=== PATIENT | female | born 1950 | race African-American/Black ===

== ENCOUNTER 2024-01-03 07:16 | Emergency (ER) | payer OTHER ==
[2024-01-03 07:52] LABS: PT Prothrombin Time 12.3 SECONDS (9.4-12.5); PTT, Activated Partial Thromb 31.5 SECONDS (24.3-36.9); Protime INR 1.1
[2024-01-03 08:04] LABS: Albumin 3.5 g/dL (3.4-5.0); Albumin/Globulin Ratio 0.8 (1.1-1.8); Bilirubin Direct 0.2 mg/dL (0-0.2); Bilirubin Indirect, Calculated 0.5 mg/dL (0.2-0.8); Bilirubin Total 0.7 mg/dL (0.2-1.0); Globulin 4.6 g/dL (2.3-3.5); Magnesium 1.9 mg/dL (1.6-2.4); Protein, Total 8.1 g/dL (6.4-8.2); Troponin High Sensitivity 18.2 pg/mL (<58.9)
[2024-01-03 08:15] LABS: Absolute Eosinophils 0.2 K/uL (0-0.5); Absolute Lymphocytes (CBC) 1.2 K/uL (0.7-4.9); Absolute Monocytes 0.4 K/uL (0.1-1.3); Absolute Neutrophil 1.9 K/uL (1.8-8.0); Basophils % 0.7 % (0-1.3); Eosinophils % 4.6 % (0-4.4); Hematocrit 50.2 % (36.0-45.0); Hemoglobin 15.8 g/dL (12.0-15.0); Lymphocytes % 32.3 % (15.3-44.8); MCH 24.7 pg (27.0-35.0); MCHC 31.5 g/dL (32.0-36.0); MCV 78.2 fL (80-100); MPV 8.7 fL (7.6-11.3); Monocytes % 11.6 % (3.3-12.3); Neutrophils % 50.8 % (41.7-73.7); Nucleated Red Blood Cells % 0.2 % (0-0); Platelets 160 thou/uL (152-406); RBC Red Blood Cell Count 6.42 M/uL (3.86-4.86); Red Cell Distribution Width 14.5 % (12.1-15.2)
--- NOTE | 2024-01-03 08:25 | RAD REPORT ---
EXAM DESCRIPTION: CT - Ct Stroke Brain Wo Cont - 01/03/2024 7:31 am CLINICAL HISTORY: STROKE ALERT COMPARISON: Abdomen Pelvis W Contrast dated 10/19/2023; Abdomen Pelvis W Contrast dated 09/10/2023; Abdomen Pelvis W Contrast dated 4Brain Wo Cont dated 10/30/2020 TECHNIQUE: Noncontrast head CT images ad were obtained without IV contrast. Multiplanar reformats we re generated and reviewed. All CT scans are performed using dose optimization technique as appropriate and may include automated exposure control or mA/KV adjustment according to patient size. FINDINGS: No intracranial hemorrhage, mass, or edema. Midline structures are unremarkable. Normal ventricular caliber for age. Very small focus of hypoattenuation in the right occipital lobe, may represent a small infarct of ind eterminate age. Larson-white matter differentiation is otherwise preserved, without evidence of acute i nfarct. No abnormal extra-axial fluid collections. Mastoid air cells and visualized portions of the paranasal sinuses are clear. No acute bony findings. IMPRESSION: Very small right occipital focus of hypoattenuation commonly representing small infarct of indeterminate age. No evidence of an acute intracranial hemorrhage or mass effect. The findings were communicated to Dr. Cabrera on 01/03/2024 at 08:18 hours.
--- NOTE | 2024-01-03 08:36 | RAD REPORT ---
EXAM DESCRIPTION: Jay Single View01/03/2024 8:13 am CLINICAL HISTORY: stroke alert COMPARISON: No comparisons TECHNIQUE: Portable AP view of the chest. FINDINGS: The lungs are clear. No pneumothorax or effusion. The cardiomediastinal contours are unre markable. IMPRESSION: No acute cardiopulmonary process.
--- NOTE | 2024-01-03 09:14 | RAD REPORT ---
EXAM DESCRIPTION: CT - Head angio - 01/03/2024 8:41 am CLINICAL HISTORY: stroke alert COMPARISON: Ct Stroke Brain Wo Cont dated 01/03/2024; Neck Angio dated 01/03/2024 TECHNIQUE: Axial CT angiography images of the head was performed with multiplanar and maximum intens ity projection reconstructions. Images performed following intravenous administration of iodinated c ontrast. All CT scans are performed using dose optimization technique as appropriate and may include automated exposure control or mA/KV adjustment according to patient size. FINDINGS: Attenuated caliber of the proximal right posterior cerebral artery. Along the proximal P2 segment, there is abrupt occlusion of the vessel, with probable reconstitution along its mid segment, following a short segment of absent opacification. No other evidence of large vessel occlusion. No evidence of aneurysm or dissection flap is detected. No flow-limiting stenosis or vascular malfor mation identified. Antegrade flow is seen in the vertebral arteries. The vertebral arteries are codominant. The visualized dural venous sinuses are grossly patent. IMPRESSION: Short-segment occlusion of the proximal right P2 segment. The findings were communicated to Dr. Carrera on 01/03/2024 at 09:10 hours.
--- NOTE | 2024-01-03 09:28 | RAD REPORT ---
EXAM DESCRIPTION: CT - Neck Angio - 01/03/2024 8:40 am CLINICAL HISTORY: stroke alert COMPARISON: No comparisons TECHNIQUE: Axial CT angiography images of the neck was performed with multiplanar and maximum intens ity projection reconstructions. Images performed following intravenous administration of iodinated c ontrast. All CT scans are performed using dose optimization technique as appropriate and may include automated exposure control or mA/KV adjustment according to patient size. Quantification of carotid stenosis, if any, is performed according to NASCET criteria. FINDINGS: A left aortic arch is identified with normal three vessel configuration of the great vesse ls. No significant flow abnormality is seen of the common carotid bilaterally. No significant stenosis is identified involving the cervical segments of both internal carotid arteri es. Normal flow is seen within both vertebral arteries. Numerous bilateral levels hypoattenuating nodules. IMPRESSION: No significant flow abnormality of the neck vessels is identified. Numerous bilateral levels hypoattenuating nodules incidentally noted. CAROTID STENOSIS REFERENCE USING NASCET CRITERIA: % ICA stenosis = (1 - narrowest ICA diameter/diameter of distal cervical ICA) x 100. Mild - <50% stenosis. Moderate - 50-69% stenosis. Severe - 70-94% stenosis. Near occlusion - 95-99% stenosis. Occluded - 100% stenosis.
--- NOTE | 2024-01-03 09:30 | EDPHYS ---
Physician Documentation [facility] Name: Yesi Ramirez Age: 73 yrs Sex: Female : 1950 Arrival Date: 01/03/2024 Time: 07:16 Bed 8 Private MD: ED Physician Luann Carrera HPI: 01/02 07:41 This 73 yrs old Black Female presents to ER via Unassigned with complaints of Numbness sd2 Of Face - left side, S/S of Possible Stroke. 07:41 73 yo F presents with CC of stroke-like symptoms starting at 4pm yesterday. Reports sd2 initially feeling numbness to her left hand which then went up to her elbow and then her left lower leg around the calf area with tingling in her left foot followed by numbness to the top left side of her lip. Also reports noticing changes in her vision. Denies CP, SOB, n/v or other symptoms. No prior hx of bleeding issues. Not currently on blood thinners. Did not take her BP meds yet this AM. . Historical: - Allergies: 07:41 Sulfa (Sulfonamide Antibiotics); hb - PMHx: 07:41 Hypertension; DM2; hb - Immunization history:: Adult Immunizations up to date. - Infectious Disease History:: Denies. - Social history:: Smoking status: Patient denies any tobacco usage or history of. ROS: 07:41 Constitutional: Negative for fever, chills, and weight loss, Eyes: Negative for injury, sd2 pain, redness, and discharge, positive for vision change Neck: Negative for injury, pain, and swelling, Cardiovascular: Negative for chest pain, palpitations, and edema, Respiratory: Negative for shortness of breath, cough, wheezing. Abdomen/GI: Negative for abdominal pain, nausea, vomiting, diarrhea. MS/Extremity: Negative for injury and deformity, Skin: Negative for injury, rash, and discoloration, Neuro: Negative for headache,positive for numbness and tingling. Exam: 07:41 Constitutional: This is a well developed, well nourished patient who is awake, alert, sd2 and in no acute distress. Head/Face: Normocephalic, atraumatic. Eyes: EOMI, normal conjunctiva bilaterally ENT: Nares patent. Moist mucous membranes. Chest/axilla: Normal chest wall appearance and motion. Nontender with no deformity. Cardiovascular: Regular rate and rhythm with a normal S1 and S2. No gallops, murmurs, or rubs. 2+ distal pulses. Respiratory: Lungs have equal breath sounds bilaterally, clear to auscultation and percussion. No rales, rhonchi or wheezes noted. No increased work of breathing, no retractions or nasal flaring. Abdomen/GI: Soft, non-tender, with normal bowel sounds. No guarding or rebound. No evidence of tenderness throughout. Skin: Warm, dry with normal turgor. Normal color with no rashes, no lesions, and no evidence of cellulitis. MS/ Extremity: Pulses equal, no cyanosis. Neurovascular intact. Full, normal range of motion. Neuro: Awake and alert, GCS 15, oriented to person, place, time, and situation. Cranial nerves II-XII grossly intact. Noted difficulty with peripheral vision on both sides. Motor strength 5/5 in all extremities. Sensory grossly intact but noted difference in sensation that is difficult for patient to describe to L lower leg and L hand and forearm as well as small area above left upper lip. Cerebellar exam normal. Normal gait. Psych: Awake, alert, with orientation to person, place and time. Behavior, mood, and affect are within normal limits. 07:41 ECG was reviewed by the Attending Physician. NSR, rate 77, no STEMI criteria, TWIs sd2 noted in lateral leads 09:30 Radiologist reports: small occipital infarct, undetermined age sd2 Vital Signs: 07:19 BP 218 / 76; Pulse 87; Resp 16; Temp 98.3; Pulse Ox 98% on R/A; Weight 95.1 kg; Height hb 5 ft. 7 in. ; Pain 0/10; 08:04 BP 217 / 77; Pulse 75; Resp 17 S; Pulse Ox 99% on R/A; kc6 09:03 BP 197 / 61; Pulse 63; Resp 16 S; Pulse Ox 100% on R/A; kc6 09:40 BP 216 / 76; Pulse 86; Resp 19 S; Pulse Ox 100% on R/A; kc6 09:57 BP 231 / 75; Pulse 79; Resp 16 S; Pulse Ox 99% on R/A; kc6 10:17 BP 213 / 70; Pulse 80; Resp 15 S; Pulse Ox 100% on R/A; kc6 07:19 Body Mass Index 32.84 (95.10 kg, 170.18 cm) hb 07:19 Pain Scale: Adult hb NIH Stroke Scale Scores: 07:33 NIHSS Score: 2 kc6 MDM: 07:23 Patient medically screened. sd2 07:41 Differential diagnosis: CVA, TIA, metabolic disorder, drug effects, among others. sd2 TNKase (Tenecteplase) Screening: Contraindications: Patient reports onset of signs and symptoms of stroke greater than 6 hours ago: Yes. Data reviewed: vital signs, nurses notes, lab test result(s), EKG, radiologic studies. Care significantly affected by the following chronic conditions: Diabetes, Hypertension. 07:53 Management of patient was discussed with the following: Forging Machine Hand: Dr. Arellano, audrey2 Neurology, recommends CTA head and neck and if no LVO, can be admitted with ASA, plavix and statin. If LVO, recommends transfer for thrombolysis.. I considered the following discharge prescriptions or medication management in the emergency department Medications were administered in the Emergency Department. See JUL. 09:25 Management of patient was discussed with the following: Forging Machine Hand: Neuro-supervisor [employer] sd2 at [facility] who recommends flying the patient for CT perfusion scan. Pt to be transferred directly to their ER. Spoke with ER physician who also accepts the transfer. Pt stable for transfer at this time.. Discussion of test interpretation with radiology: I had a discussion with radiology regarding a test interpretation. CT shows small infarct in occipital area as well as short segment P2 occlusion. . Counseling: I had a detailed discussion with the patient and/or guardian regarding the historical points, exam findings, and any diagnostic results supporting the discharge/admit diagnosis, lab results, radiology results, the need to transfer to another facility, for higher level of care. 10:15 ED course: Transfer team at bedside with [facility]. BP 213/70. sd2 Continuing with permissive HTN up to 220/120. Advised if above this to lower by 15% per AHA recommendations. . 01/02 07:24 Order name: Basic Metabolic Panel; Complete Time: 08:32 sd2 01/02 07:24 Order name: CBC with Diff; Complete Time: 08:32 sd2 01/02 07:24 Order name: Hepatic Function; Complete Time: 08:32 sd2 01/02 07:24 Order name: High Sensitivity Troponin; Complete Time: 08:32 sd2 01/02 07:24 Order name: Magnesium; Complete Time: 08:32 sd2 01/02 07:24 Order name: Protime (+inr); Complete Time: 08:32 sd2 01/02 07:24 Order name: Ptt, Activated; Complete Time: 08:32 sd2 01/02 07:49 Order name: Glucose, Ancillary Testing; Complete Time: 08:32 EDMS 01/02 07:24 Order name: CT Neck Angio; Complete Time: 09:30 sd2 01/02 07:24 Order name: CT Stroke Brain w/o Contrast; Complete Time: 08:32 sd2 01/02 07:24 Order name: Stroke CXR 1 View; Complete Time: 09:12 sd2 01/02 07:31 Order name: Head angio; Complete Time: 09:22 EDMS 01/02 07:24 Order name: Accucheck; Complete Time: 07:49 sd2 01/02 07:24 Order name: Cardiac monitoring; Complete Time: 07:49 sd2 01/02 07:24 Order name: EKG - Nurse/Tech; Complete Time: 07:49 sd2 01/02 07:24 Order name: IV Saline Lock; Complete Time: 07:49 sd2 01/02 07:24 Order name: Labs collected and sent; Complete Time: 07:49 sd2 01/02 07:24 Order name: NPO; Complete Time: 07:49 sd2 01/02 07:24 Order name: O2 Per Protocol; Complete Time: 07:49 sd2 01/02 07:24 Order name: O2 Sat Monitoring; Complete Time: 07:49 sd2 01/02 07:24 Order name: Stroke Swallow Screen; Complete Time: 07:49 sd2 Administered Medications: No medications were administered Point of Care Testing: Blood Glucose: 07:38 Blood Glucose: 109 mg/dL; kc6 Ranges: Critical Glucose Levels:Adult <50 mg/dl or >400 mg/dl <40 mg/dl or >180 mg/dl Disposition Summary: 01/03/24 09:29 Transfer Ordered Notes: Transfer Location: [facility] sd2 Reason: Higher level of care sd2 Condition: Stable sd2 Problem: new sd2 Symptoms: are unchanged sd2 Accepting Physician: Dr. Ramirez and Dr. Almanzar(01/03/24 10:20) kc6 Diagnosis - Cerebrovascular accident sd2 - Occipital infarct sd2 - Short segment P2 occlusion of the posterior cerebral artery sd2 Forms: - Medication Reconciliation Form sd2 - SBAR form sd2 Critical care time excluding procedures: 09:25 Critical care time: Bedside Care: 40 minutes, Consultation: 10 minutes, Family sd2 Intervention: 5 minutes. Total time: 55 minutes NIH Stroke Scale - NIH Stroke Score Date: 01/03/2024 Time: 07: Total Score = 2 10. Dysarthria (speech clarity - read or repeat words) - 0(Normal) 11. Extinction and Inattention (visual/tactile/auditory/spatial/personal) - 0(No abnormality) 1a. Level of Consciousness (LOC) - 0(Alert) 1b. Level of Consciousness (LOC) (Month \T\ Age) - 0(Both) 1c. LOC Commands (Open \T\ Closes Eyes/Environmental Engineering Professor) - 0(Both) 2. Best Gaze (Lateral Gaze Paresis) - 0(Normal) 3. Visual Field Loss - 1(Partial hemianopia) 4. Facial Palsy - 0(Normal) 5a. Left Arm: Motor (10-second hold) - 0(No drift) 5b. Right Arm: Motor (10-second hold) - 0(No drift) 6a. Left Leg: Motor (5-second hold - always test supine) - 0(No drift) 6b. Right Leg: Motor (5-second hold - always test supine) - 0(No drift) 7. Limb Ataxia (finger/nose \T\ heel/magana - test with eyes open) - 0(Absent) 8. Sensory Loss (pinprick arms/legs/face) - 1(Mild to moderate loss) 9. Best Language: Aphasia (description/naming/reading) - 0(No aphasia) Initials: kc6 Signatures: Dispatcher [employer] EDArlene Jenkins RN RN hb Dunlop, Stephanie, MD MD sd2 Rut James RN RN kc6 Corrections: (The following items were deleted from the chart) 07:24 07:24 BASIC METABOLIC PANEL+C.LAB.BRZ ordered. EDMS EDMS 07:24 07:24 CBC+H.LAB.BRZ ordered. EDMS EDMS 07:24 07:24 HEPATIC FUNCTION+C.LAB.BRZ ordered. EDMS EDMS 07:24 07:24 Troponin High Sensitivity+C.LAB.BRZ ordered. EDMS EDMS 07:24 07:24 MAGNESIUM+C.LAB.BRZ ordered. EDMS EDMS 07:24 07:24 PROTIME (+INR)+COAG.LAB.BRZ ordered. EDMS EDMS 07:24 07:24 PTT, ACTIVATED+COAG.LAB.BRZ ordered. EDMS EDMS 07:25 07:25 Neck Angio+CT.RAD.BRZ ordered. EDMS EDMS 07:25 07:25 CT-STROKE BRAIN W/O CONTRAST+CT.RAD.BRZ ordered. EDMS EDMS 07:25 07:25 Chest Single View+RAD.RAD.BRZ ordered. EDMS EDMS 10:20 09:[address] Almanzar sd2 kc6
--- NOTE | 2024-01-03 09:30 | ER ---
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 Coronavirus screen: At this time, the client does not indicate any symptoms associated with coronavirus-19. Ebola Screen: No symptoms or risks identified at this time. 07:19 Method Of Arrival: Ambulatory hb 07:20 An acute neurological deficit is present. The charge nurse has been notified. hb Pre-hospital glucose is not applicable to this patient. Initial Sepsis Screen: Does the patient meet any 2 criteria? No. Patient's initial sepsis screen is negative. Does the patient have a suspected source of infection? No. Patient's initial sepsis screen is negative. Risk Assessment: Do you want to hurt yourself or someone else? Patient reports no desire to harm self or others. Onset of symptoms was January 02, 2024 at 21:00. 07:20 Acuity: RY 2 hb Triage Assessment: 08:03 The onset of the patients symptoms was January 02, 2024 at 21:00. kc6 Stroke Activation: Symptom onset > 6 hours Physician: ED Attending; Name: ; Notified At: ; Arrived At: Physician: Mid-Level Provider; Name: ; Notified At: ; Arrived At: Physician: [not used]; Name: ; Notified At: ; Arrived At: Physician: [not used]; Name: ; Notified At: ; Arrived At: Physician: [not used]; Name: ; Notified At: ; Arrived At: Historical: - Allergies: 07:41 Sulfa (Sulfonamide Antibiotics); hb - PMHx: 07:41 Hypertension; DM2; hb - Immunization history:: Adult Immunizations up to date. - Infectious Disease History:: Denies. - Social history:: Smoking status: Patient denies any tobacco usage or history of. Screenin:33 VAN Screening: Arm Drift: Patient shows no arm weakness. Patient is VAN negative. kc6 Visual Disturbance: Field Cut: Abnormal visual castro noted. Provider notified of VAN + scoring. pt expresses that she is not able to see peripherally with her left eye but can see centrally Aphasia: No aphasia noted. Neglect: No neglect noted. 07:42 [facility] ED Fall Risk Assessment (Adult) History of falling in the last 3 months, kc6 including since admission No falls in past 3 months (0 pts) Confusion or Disorientation No (0 pts) Intoxicated or Sedated No (0 pts) Impaired Gait No (0 pts) Mobility Assist Device Used Yes (1 pt) Altered Elimination No (0 pt) Score/Fall Risk Level 0 - 2 = Low Risk. Abuse screen: Denies threats or abuse. Denies injuries from another. Nutritional screening: No deficits noted. Tuberculosis screening: No symptoms or risk factors identified. 07:44 [place] Swallow Protocol Brief Cognitive Screen What is your name? Normal, Where are you kc6 right now? Normal, What year is it? Normal. Oral Mechanism Examination Facial Symmetry: Normal, Motion: Normal, Lip Closure: Normal, Oral Mechanism Result: Normal. 3 oz Water Swallow Challenge: Pt able to drink all water without stopping, coughing, choking or throat clearing: Yes Result: PASS MD Notified: Luann Carrera MD. Assessment: 07:20 Reassessment: CODE STROKE CALLED, PT TO CT VIA WHEELCHAIR WITH ARLENE QUINTANILLA. kc6 07:31 Reassessment: PT RETURNED FROM CT. DR CARRERA AND RUT RN AT BEDSIDE. hb 07:32 Reassessment: LAB AT BEDSIDE FOR BLOOD DRAW. hb 07:33 General: Appears in no apparent distress. comfortable, well groomed, well developed, kc6 Behavior is calm, cooperative, appropriate for age. Pain: Denies pain. Neuro: Level of Consciousness is awake, alert, obeys commands, Oriented to person, place, time, situation, Appropriate for age Therapeutic Recreation Specialist are equal bilaterally Moves all extremities. Full function Gait is steady, Speech is normal, Facial symmetry appears normal, Pupils are PERRLA, Numbness in left leg and mouth Babinski is positive Reports blurred vision in left eye Denies weakness difficulty swallowing, headache. Cardiovascular: Denies chest pain, shortness of breath, Heart tones S1 S2 present Capillary refill < 3 seconds Rhythm is sinus rhythm. Respiratory: Airway is patent Trachea midline Respiratory effort is even, unlabored, Respiratory pattern is regular, symmetrical. GI: No signs and/or symptoms were reported involving the gastrointestinal system. : No signs and/or symptoms were reported regarding the genitourinary system. EENT: No signs and/or symptoms were reported regarding the EENT system. Derm: No signs and/or symptoms reported regarding the dermatologic system. Skin is intact, is healthy with good turgor, Skin is pink, warm \T\ dry. Musculoskeletal: No signs and/or symptoms reported regarding the musculoskeletal system. Circulation, motion, and sensation intact. Capillary refill < 3 seconds, Range of motion: intact in all extremities. 07:34 Reassessment: BLOOD DRAWN AND SENT TO OUTSIDE LAB. hb 09:03 Reassessment: Patient appears in no apparent distress at this time. No changes from kc6 previously documented assessment. Patient and/or family updated on plan of care and expected duration. Pain level reassessed. Patient is alert, oriented x 3, equal unlabored respirations, skin warm/dry/pink. 09:40 Reassessment: nurse to nurse given to [facility]. they request something for pts BP kc6 at this time. Dr. Carrera made aware. 09:42 Reassessment: Patient appears in no apparent distress at this time. No changes from kc6 previously documented assessment. Patient and/or family updated on plan of care and expected duration. Pain level reassessed. Patient is alert, oriented x 3, equal unlabored respirations, skin warm/dry/pink. Vital Signs: 07:19 BP 218 / 76; Pulse 87; Resp 16; Temp 98.3; Pulse Ox 98% on R/A; Weight 95.1 kg; Height hb 5 ft. 7 in. ; Pain 0/10; 08:04 BP 217 / 77; Pulse 75; Resp 17 S; Pulse Ox 99% on R/A; kc6 09:03 BP 197 / 61; Pulse 63; Resp 16 S; Pulse Ox 100% on R/A; kc6 09:40 BP 216 / 76; Pulse 86; Resp 19 S; Pulse Ox 100% on R/A; kc6 09:57 BP 231 / 75; Pulse 79; Resp 16 S; Pulse Ox 99% on R/A; kc6 10:17 BP 213 / 70; Pulse 80; Resp 15 S; Pulse Ox 100% on R/A; kc6 07:19 Body Mass Index 32.84 (95.10 kg, 170.18 cm) hb 07:19 Pain Scale: Adult hb NIH Stroke Scale Scores: 07:33 NIHSS Score: 2 kc6 ED Course: 07:19 Patient arrived in ED. ra3 07:23 Luann Carrera MD is Attending Physician. sd2 07:27 Rut James, RN is Primary Nurse. kc6 07:33 CT Stroke Brain w/o Contrast In Process Unspecified. EDMS 07:41 Triage completed. hb 07:42 Arm band placed on. hb 07:42 Patient has correct armband on for positive identification. Placed in gown. Bed in low kc6 position. Call light in reach. Side rails up X2. fnp on. Pulse ox on. NIBP on. Door closed. Noise minimized. Lights dimmed. Warm blanket given. Pillow given. 07:42 Diet: Patient is NPO. kc6 07:48 Inserted saline lock: 20 gauge in right antecubital area, using aseptic technique. kc6 Flushed with 10 mL NS. 07:48 Patient maintains SpO2 saturation greater than 95% on room air. kc6 08:15 Stroke CXR 1 View In Process Unspecified. EDMS 08:42 CT Neck Angio In Process Unspecified. EDMS 08:42 Head angio In Process Unspecified. EDMS 09:14 initiated a transfer with Sachin from the [facility] Transfer center. eb 09:23 connected the neuro fire protection equipment technician for [facility] with Dr. Carrera for patient transfer eb consultation. 09:27 connected the emergency room doctor fire protection equipment technician for [facility] with Dr. Carrera for eb patient transfer consultation. 09:28 administrative approval given by Sachin Pascual / patient has been accepted to [facility] ED/ Dr. Dada Maher has accepted the patient in transfer/ report to be called to [phone]. 09:30 [facility] called for transport at the request of Dr. Peace/ ETA 33 minutes. eb 10:17 No provider procedures requiring assistance completed. Patient transferred, IV remains kc6 in place. 10:18 Provided Education on: need for transfer. kc6 Administered Medications: No medications were administered Medication: 10:17 VIS not applicable for this client. kc6 Point of Care Testing: Blood Glucose: 07:38 Blood Glucose: 109 mg/dL; kc6 Ranges: Outcome: 09:29 ER care complete, transfer ordered by . [email or web address] 10:17 Transferred by helicopter to [facility], Transfer form completed. kc6 10:17 Condition: stable 10:17 Instructed on the need for transfer, 10:20 Patient left the ED. kc6 NIH Stroke Scale - NIH Stroke Score Date: 01/03/2024 Time: 07:33 Total Score = 2 10. Dysarthria (speech clarity - read or repeat words) - 0(Normal) 11. Extinction and Inattention (visual/tactile/auditory/spatial/personal) - 0(No abnormality) 1a. Level of Consciousness (LOC) - 0(Alert) 1b. Level of Consciousness (LOC) (Month \T\ Age) - 0(Both) 1c. LOC Commands (Open \T\ Closes Eyes/Leather Seasoner) - 0(Both) 2. Best Gaze (Lateral Gaze Paresis) - 0(Normal) 3. Visual Field Loss - 1(Partial hemianopia) 4. Facial Palsy - 0(Normal) 5a. Left Arm: Motor (10-second hold) - 0(No drift) 5b. Right Arm: Motor (10-second hold) - 0(No drift) 6a. Left Leg: Motor (5-second hold - always test supine) - 0(No drift) 6b. Right Leg: Motor (5-second hold - always test supine) - 0(No drift) 7. Limb Ataxia (finger/nose \T\ heel/magana - test with eyes open) - 0(Absent) 8. Sensory Loss (pinprick arms/legs/face) - 1(Mild to moderate loss) 9. Best Language: Aphasia (description/naming/reading) - 0(No aphasia) Initials: kc6 Signatures: Dispatcher [employer] EDMS Arlene Snell RN RN Nelly Phan Stephanie, MD MD sd2 Rut James RN RN kc6 Zoë Navarrete ra3 Corrections: (The following items were deleted from the chart) 07:41 07:19 BP 218 / 76; Pulse 87bpm; Resp 16bpm; Pulse Ox 98% RA; Temp 98.3F; 95.1 hb kg; Pain 0/10, Adult; hb 07:58 07:36 Reassessment: CODE STROKE CALLED, PT TO CT VIA WHEELCHAIR WITH ARLENE RN kc6 09:42 07:33 VAN Screening: Arm Drift: Patient shows no arm weakness. Patient is VAN kc6 negative. Visual Disturbance: Field Cut: Abnormal visual castro noted. Provider notified of VAN + scoring. pt expresses that she is not able to see peripherally with her left eye but can see centrall Aphasia: No aphasia noted. Neglect: No neglect noted. kc6
[2024-01-03 10:38] VITALS: TEMP 98.3
[2024-01-03 10:45] VITALS: BP 213/70; O2SAT 100
--- NOTE | 2024-01-04 10:01 | EKG ---
Test Date: 2024-01-03 Test Time: 07:42:43 Tire Assembler: ASHWIN MEASUREMENT RESULTS: Intervals: Rate: 77 WI: 182 QRSD: 96 QT: 384 QTc: 434 [place]: P: 76 WI: 182 QRS: -6 T: 107 INTERPRETIVE STATEMENTS: Normal sinus rhythm Right atrial enlargement Voltage criteria for left ventricular hypertrophy ST & T wave abnormality, consider lateral ischemia Abnormal ECG Compared to ECG 01/08/2001 10:14:00 Left ventricular hypertrophy now present ST (T wave) deviation now present Possible ischemia now present T-wave abnormality no longer present Electronically Signed On 01-04-24 10:00:20 CDT by Jeffrey Love
== END 2024-01-03 10:20 | disposition short-term general hospital (02) ==
LOC: ER 07:16
DX: I63.9 Cerebral infarction, unspecified (principal); I63.89 Other cerebral infarction; I66.21 Occlusion and stenosis of right posterior cerebral artery; R29.702 NIHSS score 2; I10 Essential (primary) hypertension; E11.9 Type 2 diabetes mellitus without complications
CPT/HCPCS: 93005; 85025; 80048; 36415; 83735; 85610; 82947; 80076; 85730; 84484; 70496; 70498; 70450; 71045; 99285; Q9967

== ENCOUNTER 2024-01-11 18:54 | Inpatient (IN) | payer OTHER ==
[2024-01-11 20:13] LABS: Specific Gravity 1.019 (1.005-1.030); Urine Bacteria None Seen /HPF (<20); Urine Bilirubin NEGATIVE (Negative); Urine Blood Negative (Negative); Urine Clarity Turbid (Clear); Urine Color Light-Yellow (Yellow); Urine Culture Reflex Order NOT NEEDED; Urine Glucose NEGATIVE (Negative); Urine Ketones NEGATIVE (Negative); Urine Microscopic Reflex YN ORDER UMIC; Urine Nitrite NEGATIVE (Negative); Urine Protein 1+ (Negative); Urine RBC <5 /HPF (None Seen); Urine Urobilinogen Normal (Normal); Urine WBC <5 /HPF (<5)
--- NOTE | 2024-01-11 20:14 | RAD REPORT ---
EXAM DESCRIPTION: RAD - Chest Single View - 01/11/2024 8:08 pm CLINICAL HISTORY: COUGH COMPARISON: Chest Single View dated 01/03/2024 FINDINGS: Lines: None. Lungs: No evidence of edema or pneumonia. Pleural: No significant pleural effusions or pneumothorax. Cardiac: The heart size is within normal limits. Mediastinum: Within normal limits. Bones: No acute fractures. Other: None IMPRESSION: No acute cardiopulmonary disease.
[2024-01-11 20:17] LABS: Absolute Basophils 0.1 K/uL (0-0.5); Absolute Eosinophils 0.3 K/uL (0-0.5); Absolute Lymphocytes (CBC) 1.2 K/uL (0.7-4.9); Absolute Monocytes 0.9 K/uL (0.1-1.3); Basophils % 0.9 % (0-1.3); Eosinophils % 4.6 % (0-4.4); Hematocrit 39.8 % (36.0-45.0); Hemoglobin 12.7 g/dL (12.0-15.0); Lymphocytes % 18.7 % (15.3-44.8); MCH 24.8 pg (27.0-35.0); MCHC 31.9 g/dL (32.0-36.0); MCV 77.7 fL (80-100); Monocytes % 13.3 % (3.3-12.3); Neutrophils % 62.5 % (41.7-73.7); PT Prothrombin Time 13.1 SECONDS (9.4-12.5); PTT, Activated Partial Thromb 23.5 SECONDS (24.3-36.9); Platelets 252 thou/uL (152-406); Protime INR 1.18; RBC Red Blood Cell Count 5.12 M/uL (3.86-4.86); Red Cell Distribution Width 14.6 % (12.1-15.2)
[2024-01-11 20:30] LABS: ALT/SGPT 38 U/L (13-56); Albumin 3.2 g/dL (3.4-5.0); Albumin/Globulin Ratio 0.7 (1.1-1.8); Alkaline Phosphatase 73 U/L (45-117); Anion Gap 9.2 mEq/L (5.0-15.0); BUN Blood Urea Nitrogen 19 mg/dL (7-18); Bicarbonate 25 mEq/L (21-32); Bilirubin Total 0.5 mg/dL (0.2-1.0); Globulin 4.3 g/dL (2.3-3.5); Glomerular Filtration Rate 47 ml/min (=/>90); Glucose Level 99 mg/dL (74-106); Protein, Total 7.5 g/dL (6.4-8.2); Sodium Level 138 mEq/L (136-145); Troponin High Sensitivity 35.5 pg/mL (<58.9)
[2024-01-11 20:34] LABS: AST/SGOT 40 U/L (15-37); Bilirubin Direct < 0.2 mg/dL (0-0.2); Bilirubin Indirect, Calculated 0.3 mg/dL (0.2-0.8); Magnesium 1.9 mg/dL (1.6-2.4); Potassium 4.2 mEq/L (3.5-5.1)
--- NOTE | 2024-01-11 20:50 | RAD REPORT ---
EXAM DESCRIPTION: CT - Head Brain Wo Cont - 01/11/2024 8:34 pm CLINICAL HISTORY: NUMBNESS COMPARISON: Head CT, CTA 01/03/2024 TECHNIQUE: All CT scans are performed using dose optimization technique as appropriate and may inclu de automated exposure control or mA/KV adjustment according to patient size. FINDINGS: Evolving small to moderate infarct in the right occipital lobe which has increased in size since 01/03/2024. No acute intracranial hemorrhage. No mass effect or midline shift. No hydrocephalu s. The paranasal sinuses and mastoids are clear. The calvarium is intact. IMPRESSION: Enlarging/evolving right occipital lobe infarct compared with 01/03/2024. The patient gallagher d a right posterior cerebral artery occlusion on the comparison CTA. No acute intracranial hemorrhage . MRI could better assess the extent of the infarct.
[2024-01-11] MEDS ORDERED: HYDRALAZINE HCL 20 MG/ML VIAL ONE ×2 (21:36→22:47)
--- NOTE | 2024-01-11 22:37 | EDPHYS ---
Physician Documentation [facility] Name: Yesi Ramirez Age: 73 yrs Sex: Female : 1950 Arrival Date: 01/11/2024 Time: 18:54 Bed 4 Private MD: ED Physician Kolton Henderson HPI: 01/10 19:45 This 73 yrs old Black Female presents to ER via Wheelchair with complaints of Numbness, cp Cough, Bleeding. 19:45 The patient's problem is reported as weakness, in the left upper extremity, in the left cp lower extremity, numbness. 19:45 Duration: The episode is continuous, weakness feels worse. cp 19:45 Patient presents to ED with c/o continued numbness to left side of face and left arm cp and left leg that started after she suffered a stroke and was seen in this ED January 03, 2024. Patient concerned that no improvement in numbness and that weakness feels worse. Patient also reports noticing small amount of blood in briefs today. Historical: - Allergies: 19:05 Sulfa (Sulfonamide Antibiotics); cp4 - PMHx: 19:05 DM2; Hypertension; Cerebrovascular accident; cp4 - Immunization history:: Adult Immunizations up to date. - Infectious Disease History:: Denies. - Social history:: Smoking status: Patient denies any tobacco usage or history of. ROS: 19:50 Constitutional: Negative for body aches, chills, fever, poor PO intake, cp 19:50 Eyes: Negative for injury, pain, redness, and discharge, cp 19:50 ENT: Negative for drainage from ear(s), ear pain, sore throat, difficulty swallowing, difficulty handling secretions, 19:50 Cardiovascular: Negative for chest pain, edema, palpitations, 19:50 Respiratory: Negative for cough, shortness of breath, wheezing, 19:50 Abdomen/GI: Negative for abdominal pain, vomiting, diarrhea, constipation, 19:50 : Negative for urinary symptoms, 19:50 Neuro: Positive for numbness, weakness, of the left side of face and left arm and left leg, Negative for altered mental status, 19:50 All other systems are negative, Exam: 19:07 ECG was reviewed by the Attending Physician. cp 19:55 Constitutional: The patient appears in no acute distress, alert, awake, cp non-diaphoretic, non-toxic, well developed, well nourished, 19:55 Head/Face: Normocephalic, atraumatic. cp 19:55 Eyes: Periorbital structures: appear normal, Pupils: equal, round, and reactive to light and accomodation, Extraocular movements: intact throughout, Conjunctiva: normal, no exudate, no injection, Sclera: no appreciated abnormality, Lids and lashes: appear normal, bilaterally, 19:55 ENT: External ear(s): are unremarkable, Nose: is normal, Mouth: Lips: moist, Oral mucosa: moist, Posterior pharynx: Airway: no evidence of obstruction, patent, 19:55 Neck: ROM/movement: is normal, is supple, without pain, no range of motions limitations, 19:55 Chest/axilla: Inspection: normal, 19:55 Cardiovascular: Rate: normal, Rhythm: regular, Edema: is not appreciated, JVD: is not appreciated, 19:55 Respiratory: the patient does not display signs of respiratory distress, Respirations: normal, no use of accessory muscles, no retractions, labored breathing, is not present, Breath sounds: are clear throughout, no decreased breath sounds, no stridor, no wheezing, 19:55 Abdomen/GI: Inspection: abdomen appears normal, Bowel sounds: active, all quadrants, Palpation: abdomen is soft and non-tender, in all quadrants, 19:55 Back: pain, is absent, ROM is normal, 19:55 : Rectal exam: external hemorrhoids noted, 19:55 Neuro: Orientation: to person, place \T\ time. Mentation: able to follow commands, Motor: moves all fours, weakness of left arm and left leg, Sensation: numbness, of the left side of face and left arm and left leg , 21:05 Radiologist reports: report reviewed cp Vital Signs: 19:00 BP 177 / 66; Pulse 72; Resp 16; Temp 98.5; Pulse Ox 100% ; Weight 96.16 kg; Height 5 cp4 ft. 7 in. ; 20:09 BP 178 / 57; Pulse 65; Resp 17; Temp 98.5; Pulse Ox 100% ; Pain 0/10; bm8 21:29 BP 179 / 50; Pulse 79; Resp 17; Temp 98.5; Pulse Ox 100% ; Pain 0/10; bm8 22:43 BP 175 / 50; Pulse 81; Pulse Ox 98% on R/A; lg3 23:41 BP 185 / 47; Pulse 88; Resp 17; Temp 98.5; Pulse Ox 98% ; Pain 0/10; bm8 23:55 BP 154 / 49; Pulse 72; Resp 17; Temp 98.5; Pulse Ox 100% ; Pain 0/10; bm8 01/11 01:20 BP 171 / 51; Pulse 78; Resp 19; Temp 98.5; Pulse Ox 98% on R/A; Pain 0/10; bm8 01:45 BP 184 / 51; Pulse 77; Resp 20; Temp 98.5; Pulse Ox 98% ; bm8 02:13 BP 176 / 56; Pulse 78; Resp 20; Temp 98.5; Pulse Ox 98% ; Pain 0/10; oe 01/10 19:00 Body Mass Index 33.20 (96.16 kg, 170.18 cm) cp4 20:09 Pain Scale: Adult bm8 21:29 Pain Scale: Adult bm8 23:41 Pain Scale: Adult bm8 23:55 Pain Scale: Adult bm8 01/11 01:20 Pain Scale: Adult bm8 02:13 Pain Scale: Adult oe Madalyn Coma Score: 01/10 19:24 Eye Response: spontaneous(4). Motor Response: obeys commands(6). Verbal Response: bm8 oriented(5). Total: 15. 20:09 Eye Response: spontaneous(4). Motor Response: obeys commands(6). Verbal Response: bm8 oriented(5). Total: 15. 21:29 Eye Response: spontaneous(4). Motor Response: obeys commands(6). Verbal Response: bm8 oriented(5). Total: 15. 23:41 Eye Response: spontaneous(4). Motor Response: obeys commands(6). Verbal Response: bm8 oriented(5). Total: 15. 23:55 Eye Response: spontaneous(4). Motor Response: obeys commands(6). Verbal Response: bm8 oriented(5). Total: 15. 01/11 01:20 Eye Response: spontaneous(4). Motor Response: obeys commands(6). Verbal Response: bm8 oriented(5). Total: 15. MDM: 01/10 19:08 Patient medically screened. cp 22:10 Management of patient was discussed with the following: Hospitalist: DR Sheth, requests CT head and neck angio and neuro consult. 22:10 Data reviewed: vital signs, nurses notes, lab test result(s), EKG, radiologic studies, CT scan, plain films, I have discussed the patient's presentation/case with the attending Emergency Department Physician;. 22:10 I considered the following discharge prescriptions or medication management in the emergency department Medications were administered in the Emergency Department. See MAR. Independent interpretation of the following test(s) in the Emergency Department EKG: See my EKG interpretation above. 01/11 00:45 ED course: discussed results of CT head and neck angio with DR Sheth who requests transfer for neurosurgical consult. 01/10 19:44 Order name: Basic Metabolic Panel; Complete Time: 20:35 01/10 20:35 Interpretation: Normal except: CL 108; BUN 19; CRE 1.21; GFR 47. 01/10 19:44 Order name: CBC with Diff; Complete Time: 20:35 01/10 21:12 Interpretation: Normal except: RBC 5.12; MCV 77.7; MCH 24.8; MCHC 31.9; MN% 13.3; cp EOSINOPHIL % 4.6. 01/10 19:44 Order name: LFT's; Complete Time: 20:35 cp 01/10 19:44 Order name: Magnesium; Complete Time: 20:35 cp 01/10 19:44 Order name: PT-INR; Complete Time: 20:35 cp 01/10 19:44 Order name: Troponin HS; Complete Time: 20:35 cp 01/10 19:44 Order name: Ptt, Activated; Complete Time: 20:35 cp 01/10 19:45 Order name: Urinalysis w/ reflexes; Complete Time: 20:35 cp 01/10 22:42 Order name: CBC with Automated Diff EDMS 01/10 22:42 Order name: CBC with Automated Diff EDMS 01/10 22:42 Order name: CBC with Automated Diff EDMS 01/10 22:42 Order name: CBC with Automated Diff EDMS 01/10 19:44 Order name: XRAY Chest (1 view); Complete Time: 20:35 cp 01/10 19:50 Order name: CT Head Brain wo Cont; Complete Time: 21:02 01/10 21:04 Interpretation: Report reviewed. 01/10 21:39 Order name: CT Neck Angio 01/10 22:06 Order name: Head angio EDMO 01/10 22:42 Order name: Echo with Doppler EDMO 01/10 19:44 Order name: EKG; Complete Time: 19:45 cp 01/10 22:40 Order name: CONS Physician Consult EDMO 01/10 22:41 Order name: CONS Physician Consult EDMO 01/10 19:44 Order name: Cardiac monitoring; Complete Time: 20:08 cp 01/10 19:44 Order name: EKG - Nurse/Tech; Complete Time: 20:08 cp 01/10 19:44 Order name: IV Saline Lock; Complete Time: 20:08 01/10 19:44 Order name: Labs collected and sent; Complete Time: 20:08 01/10 19:44 Order name: O2 Per Protocol; Complete Time: 20:08 01/10 19:44 Order name: O2 Sat Monitoring; Complete Time: 20:08 01/10 22:36 Order name: Misc. Order: systolic BP goal 150-160; Complete Time: 22:58 cp EC/02 19:07 Rate is 71 beats/min. Rhythm is regular. OH interval is normal. QRS interval is normal. cp QT interval is normal. Interpreted by me. Reviewed by me. Administered Medications: 21:50 Drug: hydrALAZINE IVP 10 mg IVP once Route: IVP; Site: left antecubital; bm8 23:41 Follow up: Response: No adverse reaction bm8 22:58 Drug: hydrALAZINE IVP 10 mg IVP once Route: IVP; Site: left antecubital; bm8 23:40 Follow up: Response: No adverse reaction bm8 23:54 Drug: Labetalol IV 10 mg IV at bolus every 4 hours Route: IV; Rate: bolus; Site: left bm8 antecubital; 01/11 00:24 Follow up: Response: No adverse reaction; IV Status: Completed infusion; IV Intake: 2ml bm8 01:00 Drug: Diltiazem IV 5 mg/hr IV at calculated rate See Administration Instructions; bm8 (standard dilution 125 mg diltiazem mixed in 125 mL NS; final concentration 1mg/mL). Recommended max rate 15 mg/hr; Titrate 5 mg/hr as often as every 15 minutes to achieve goal (see titration policy); Goal parameter HR less than 100 bpm Route: IV; Rate: calculated rate; Site: left antecubital; 01:22 Follow up: TITRATED MEDICATION UP TO 7.5 MG DUE TO BP BEING 171/51 bm8 01:45 Follow up: BP 184 / 51; Pulse 77 bpm; Resp 20 bpm; Temp 98.5; Pulse Ox 98% ; TITRATED bm8 MEDICATION UP TO 10 MG/HR 02:16 Follow up: TITRATED MEDICATION UP TO 15 MG/ HR DUE TO BP 176/56 bm8 02:16 Follow up: Response: No adverse reaction; IV Status: Infusion continued upon transfer bm8 Disposition Summary: 01/12/24 00:26 Transfer Ordered Notes: Transfer Location: [facility] cp Reason: Higher level of care cp Condition: Stable(01/12/24 00:26) cp Problem: new(01/12/24 00:26) cp Symptoms: have improved(01/12/24 00:26) cp Accepting Physician: DR Montelongo(01/12/24 02:17) bm8 Diagnosis - Hypertensive heart disease without heart failure(01/12/24 00:26) cp - 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 I did not e c2 personally see the patient or discuss the patient with the MEI. . Signatures: Dispatcher [employer] EDMS Cameron Sierra PA PA cp Able, Lacie, RN RN lg3 Kolton Henderson MD MD ec2 Barbie Juarez cp4 Yung Shin, RN RN bm8 Corrections: (The following items were deleted from the chart) 01/11 00:01/10 22:37 Inpatient Admission cp cp 01/11 00:01/10 22:37 [place] cp cp 01/11 00:01/10 22:37 Intensive Care Unit cp cp 01/11 00:01/10 22:37 Stable cp cp 01/11 00:01/10 22:37 new cp cp 01/11 00:01/10 22:37 have improved cp cp 01/11 00:01/10 22:37 Standard cp cp 01/11 00:01/10 22:37 cp cp 01/11 00:01/10 22:37 Hypertensive heart disease without heart failure cp cp 01/11 01:03 01/09 19:45 This 73 yrs old Black Female presents to ER via Wheelchair with complaints cp of Numbness, Cough, Bleeding. cp 01/11 01:14 00:26 Doctor cp cp 02:17 01:14 DR Montelongo cp bm8 02:01/10 19:05 ECG was reviewed by the Attending Physician. cp cp
--- NOTE | 2024-01-11 22:37 | ER ---
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 Also reports residual numbness to the left side from a previous CVA last Thursday. Patient is on blood thinners. Coronavirus screen: Client denies travel out of the [place] in the last 14 days. At this time, the client does not indicate any symptoms associated with coronavirus-19. Ebola Screen: Patient negative for fever greater than or equal to 101.5 degrees Fahrenheit, and additional compatible Ebola Virus Disease symptoms Patient denies exposure to infectious person. Patient denies travel to an Ebola-affected area in the 21 days before illness onset. No symptoms or risks identified at this time. Initial Sepsis Screen: Does the patient meet any 2 criteria? No. Patient's initial sepsis screen is negative. Does the patient have a suspected source of infection? No. Patient's initial sepsis screen is negative. Risk Assessment: Do you want to hurt yourself or someone else? Patient reports no desire to harm self or others. Onset of symptoms was January 11, 2024. 19:00 Method Of Arrival: Wheelchair cp4 19:00 Acuity: RY 3 cp4 Historical: - Allergies: 19:05 Sulfa (Sulfonamide Antibiotics); cp4 - PMHx: 19:05 DM2; Hypertension; Cerebrovascular accident; cp4 - Immunization history:: Adult Immunizations up to date. - Infectious Disease History:: Denies. - Social history:: Smoking status: Patient denies any tobacco usage or history of. Screenin:24 [facility] ED Fall Risk Assessment (Adult) History of falling in the last 3 months, bm8 including since admission No falls in past 3 months (0 pts) Confusion or Disorientation No (0 pts) Intoxicated or Sedated No (0 pts) Impaired Gait Yes (1 pt) Mobility Assist Device Used Yes (1 pt) Altered Elimination No (0 pt) Score/Fall Risk Level 0 - 2 = Low Risk Oriented to surroundings, Maintained a safe environment, Educated pt \T\ family on fall prevention, incl call for assistance when getting out of bed, Assessed \T\ reinforced patient's understanding of fall precautions, Hourly rounding (assess needs \T\ fall precautionary measures) done, Used ambulatory aids as needed (educated on \T\ assisted with), Used gait belt as appropriate. Abuse screen: Denies threats or abuse. Nutritional screening: No deficits noted. Tuberculosis screening: No symptoms or risk factors identified. Assessment: 19:24 Reassessment: Patient appears in no apparent distress at this time. Patient and/or bm8 family updated on plan of care and expected duration. Pain level reassessed. Patient is alert, oriented x 3, equal unlabored respirations, skin warm/dry/pink. Patient denies pain at this time. General: Appears in no apparent distress. comfortable, Behavior is calm, cooperative, appropriate for age. Pain: Denies pain. Neuro: Level of Consciousness is awake, alert, obeys commands, Oriented to person, place, time, situation, Appropriate for age. Cardiovascular: Denies chest pain, Heart tones S1 S2 present Capillary refill < 3 seconds Patient's skin is warm and dry. Respiratory: Airway is patent Trachea midline Respiratory effort is even, unlabored, Respiratory pattern is regular, symmetrical, Breath sounds are clear bilaterally. GI: pt reports small amount of blood in pull up and can not identify where it is coming from. Described as bright red spots. : Urine is clear, Denies burning with urination, inability to void, pain. EENT: No signs and/or symptoms were reported regarding the EENT system. Derm: No signs and/or symptoms reported regarding the dermatologic system. Musculoskeletal: No signs and/or symptoms reported regarding the musculoskeletal system. 20:09 Reassessment: No changes from previously documented assessment. bm8 21:29 Reassessment: Patient appears in no apparent distress at this time. No changes from bm8 previously documented assessment. Patient and/or family updated on plan of care and expected duration. Pain level reassessed. Patient is alert, oriented x 3, equal unlabored respirations, skin warm/dry/pink. Patient denies pain at this time. 23:55 General: Appears in no apparent distress. comfortable, Behavior is calm, cooperative, bm8 appropriate for age. Pain: Denies pain. Neuro: Level of Consciousness is awake, alert, obeys commands, Oriented to person, place, time, situation, Appropriate for age. Cardiovascular: Denies chest pain, Capillary refill < 3 seconds Patient's skin is warm and dry. Respiratory: Airway is patent Trachea midline Respiratory effort is even, unlabored, Respiratory pattern is regular, symmetrical. GI: No signs and/or symptoms were reported involving the gastrointestinal system. : No signs and/or symptoms were reported regarding the genitourinary system. EENT: No signs and/or symptoms were reported regarding the EENT system. Derm: No signs and/or symptoms reported regarding the dermatologic system. Musculoskeletal: No signs and/or symptoms reported regarding the musculoskeletal system. 01/11 01:20 Reassessment: No changes from previously documented assessment. Patient and/or family bm8 updated on plan of care and expected duration. Pain level reassessed. Patient is alert, oriented x 3, equal unlabored respirations, skin warm/dry/pink. Patient denies pain at this time. 01:32 General: REPORT GIVEN TO SOCORRO BHAGAT . bm8 Vital Signs: 01/10 19:00 BP 177 / 66; Pulse 72; Resp 16; Temp 98.5; Pulse Ox 100% ; Weight 96.16 kg; Height 5 cp4 ft. 7 in. ; 20:09 BP 178 / 57; Pulse 65; Resp 17; Temp 98.5; Pulse Ox 100% ; Pain 0/10; bm8 21:29 BP 179 / 50; Pulse 79; Resp 17; Temp 98.5; Pulse Ox 100% ; Pain 0/10; bm8 22:43 BP 175 / 50; Pulse 81; Pulse Ox 98% on R/A; lg3 23:41 BP 185 / 47; Pulse 88; Resp 17; Temp 98.5; Pulse Ox 98% ; Pain 0/10; bm8 23:55 BP 154 / 49; Pulse 72; Resp 17; Temp 98.5; Pulse Ox 100% ; Pain 0/10; bm8 01/11 01:20 BP 171 / 51; Pulse 78; Resp 19; Temp 98.5; Pulse Ox 98% on R/A; Pain 0/10; bm8 01:45 BP 184 / 51; Pulse 77; Resp 20; Temp 98.5; Pulse Ox 98% ; bm8 02:13 BP 176 / 56; Pulse 78; Resp 20; Temp 98.5; Pulse Ox 98% ; Pain 0/10; oe 01/10 19:00 Body Mass Index 33.20 (96.16 kg, 170.18 cm) cp4 20:09 Pain Scale: Adult bm8 21:29 Pain Scale: Adult bm8 23:41 Pain Scale: Adult bm8 23:55 Pain Scale: Adult bm8 01/11 01:20 Pain Scale: Adult bm8 02:13 Pain Scale: Adult oe Madalyn Coma Score: 01/10 19:24 Eye Response: spontaneous(4). Motor Response: obeys commands(6). Verbal Response: bm8 oriented(5). Total: 15. 20:09 Eye Response: spontaneous(4). Motor Response: obeys commands(6). Verbal Response: bm8 oriented(5). Total: 15. 21:29 Eye Response: spontaneous(4). Motor Response: obeys commands(6). Verbal Response: bm8 oriented(5). Total: 15. 23:41 Eye Response: spontaneous(4). Motor Response: obeys commands(6). Verbal Response: bm8 oriented(5). Total: 15. 23:55 Eye Response: spontaneous(4). Motor Response: obeys commands(6). Verbal Response: bm8 oriented(5). Total: 15. 01/11 01:20 Eye Response: spontaneous(4). Motor Response: obeys commands(6). Verbal Response: bm8 oriented(5). Total: 15. ED Course: 01/10 18:58 Patient arrived in ED. mr 19:04 Cameron Sierra PA is PHCP. cp 19:04 Richie Ramirez MD is Attending Physician. cp 19:05 Triage completed. cp4 19:05 Arm band placed on right wrist. Patient placed in waiting room. cp4 19:23 Yung Shin, RN is Primary Nurse. bm8 19:24 Patient has correct armband on for positive identification. Placed in gown. Bed in low bm8 position. Call light in reach. Side rails up X2. Adult w/ patient. Client placed on continuous cardiac and pulse oximetry monitoring. NIBP monitoring applied. Pulse ox on. NIBP on. Door closed. Noise minimized. Warm blanket given. Pillow given. Verbal reassurance given. Head of bed elevated. 19:24 No provider procedures requiring assistance completed. bm8 20:09 XRAY Chest (1 view) In Process Unspecified. EDMS 20:09 Inserted saline lock: 20 gauge in left antecubital area, using aseptic technique. Blood bm8 collected. Flushed with 10 mL NS. 20:36 CT Head Brain wo Cont In Process Unspecified. EDMS 21:29 Provided Education on: need for admit. bm8 22:36 Prince Regan MD is Hospitalizing Provider. cp 23:54 Assisted to bathroom. bm8 23:54 Patient admitted, IV remains in place. bm8 01/11 00:00 Kolton Henderson MD is Attending Physician. cp Administered Medications: 01/10 21:50 Drug: hydrALAZINE IVP 10 mg IVP once Route: IVP; Site: left antecubital; bm8 23:41 Follow up: Response: No adverse reaction bm8 22:58 Drug: hydrALAZINE IVP 10 mg IVP once Route: IVP; Site: left antecubital; bm8 23:40 Follow up: Response: No adverse reaction bm8 23:54 Drug: Labetalol IV 10 mg IV at bolus every 4 hours Route: IV; Rate: bolus; Site: left 8 antecubital; 01/11 00:24 Follow up: Response: No adverse reaction; IV Status: Completed infusion; IV Intake: 2ml bm8 01:00 Drug: Diltiazem IV 5 mg/hr IV at calculated rate See Administration Instructions; bm8 (standard dilution 125 mg diltiazem mixed in 125 mL NS; final concentration 1mg/mL). Recommended max rate 15 mg/hr; Titrate 5 mg/hr as often as every 15 minutes to achieve goal (see titration policy); Goal parameter HR less than 100 bpm Route: IV; Rate: calculated rate; Site: left antecubital; 01:22 Follow up: TITRATED MEDICATION UP TO 7.5 MG DUE TO BP BEING 171/51 bm8 01:45 Follow up: BP 184 / 51; Pulse 77 bpm; Resp 20 bpm; Temp 98.5; Pulse Ox 98% ; TITRATED bm8 MEDICATION UP TO 10 MG/HR 02:16 Follow up: TITRATED MEDICATION UP TO 15 MG/ HR DUE TO BP 176/56 bm8 02:16 Follow up: Response: No adverse reaction; IV Status: Infusion continued upon transfer bm8 Medication: 01/10 19:24 VIS not applicable for this client. bm8 Intake: 01/11 00:24 IV: 2ml; Total: 2ml. bm8 Outcome: 01/10 22:37 Decision to Hospitalize by Provider. cp 01/11 02:15 Transferred by ground EMS to [facility], Transfer form completed. bm8 X-rays sent w/ patient. Condition: stable Instructed on the need for transfer, Demonstrated understanding of instructions, follow-up care, 02:17 Patient left the ED. bm8 Signatures: Dispatcher [employer] EDMS Rossana Curry, Joe Reg mr Cameron Sierra, YOLIE PA cp Preet Farrell Lacie, RN RN 3 Barbie Juarez cp4 Yung Shin, RN RN bm8 Corrections: (The following items were deleted from the chart) 02:16 00:01 Condition: stable bm8 bm8 02:16 00:01 Admitted to Tele accompanied by nurse, via stretcher, via wheelchair, bm8 bm8 02:16 00:01 Instructed on the need for admit, bm8 bm8 02:16 00:26 ER care complete, transfer ordered by MD. cp bm8
--- NOTE | 2024-01-11 22:49 | P.HP ---
Certification for Inpatient Patient admitted to: Inpatient With expected LOS: >2 Midnights Practitioner: I am a practitioner with admitting privileges, knowledge of patient current condition, hospital course, and medical plan of care. Services: Services provided to patient in accordance with Admission requirements found in Title 42 Section 412.3 of the Code of Federal Regulations Patient History Date of Service: 01/12/24 Reason for admission: CVA, rectal bleeding History of Present Illness: Patient is a 73 year old female with a recent diagnosis of CVA 1 week ago at [facility] in the [facility]. She first presented here with blurry vision and left sided weakness and numbness and was life-flighted to [place]. She was found to have a stroke. Patient states she was told she had a posterior circulation occlusion. She was discharged on DAPT. She now presents today with rectal bleeding. She does not describe this as profuse bleeding. Evaluation in the ER revealed that she has hemorrhoids. Her presenting hemoglobin was more than 12. Patient is also reporting persistent L sided weakness and numbness. She never went to rehab after being discharged from [facility] in the [facility]. She endorses significant improvement of her vision, however. Allergies Sulfa (Sulfonamide Antibiotics) Allergy (Verified 01/11/24 22:50) Hives/Rash Physical Examination - Physical Exam General: In no apparent distress, Obese HEENT: Atraumatic, Normocephalic Cardiovascular: No edema, Normal pulses, Regular rate/rhythm, Normal S1 S2, Systolic murmur Musculoskeletal: No clubbing, No swelling, No contractures Neurological: Normal speech, Normal strength at 5/5 x4 extr - Studies Laboratory Data (last 24 hrs) 01/11/24 01/11/24 01/11/24 19:57 19:57 19:57 WBC 6.50 Hgb 12.7 Hct 39.8 Plt Count 252 PT 13.1 H INR 1.18 APTT 23.5 L Sodium 138 Potassium 4.2 BUN 19 H Creatinine 1.21 H Glucose 99 Magnesium 1.9 Total Bilirubin 0.5 AST 40 H ALT 38 Alkaline Phosphatase 73 Assessment and Plan - Problems (Diagnosis) (1) CVA (cerebral vascular accident) Current Visit: Yes Status: Acute (2) Rectal bleeding Current Visit: Yes Status: Acute (3) Hypertension Current Visit: Yes Status: Acute (4) Obesity Current Visit: Yes Status: Acute - Plan Assessment Patient is a 73-year-old -[place] female with a recent history of CVA that required hospitalization at [facility] in the [facility]. She is on dual antiplatelet therapy and now presents with rectal bleeding. Her presenting hemoglobin is patient is 12.7. Inspection in the ER showing some hemorrhoids. She is also complaining of persistent left-sided weakness. CT head revealed evolving stroke involving the right occipital lobe. She also has occlusion of the posterior cerebral artery. These findings were discussed with Dr. Arellano from neurology. Recommended maintaining blood pressure around 160. Patient's systolic blood pressure room evaluation was 182 mmHg. CVA Hypertension Rectal bleeding Plan: Transfer to [facility] in the [facility] Follow CTA Head/Neck Target blood pressure 140s to 160 mmHg As needed hydralazine ordered Resume home dose of lisinopril which patient takes in the morning 2D echo ordered Will also obtain a consult to neurology to advise on continued use of dual antiplatelet therapy Nonurgent consult to GI as well for rectal bleeding Patient is DNR Note: I was notified by radiology about the patient's CTA head and neck which revealed moderate to severe stenosis of left MCA segment. This is new compared to imaging done on 01/03/2024. Patient also has right ICA stenosis. Considering findings of stroke, and discussion with radiology, it was decided to transfer patient to a facility with vascular surgery coverage for further evaluation. Patient also has evidence of extraluminal blood adjacent to her V4 segment of the vertebral artery. - Advance Directives Does patient have a Living Will: No Does patient have a Durable POA for Healthcare: No
[2024-01-11] MEDS ORDERED: HYDRALAZINE HCL 20 MG/ML VIAL IV PRN (22:51)
[2024-01-11] MEDS ORDERED: LABETALOL 20 MG/4ML SYRINGE IV ONE (23:46)
[2024-01-12 00:24] VITALS: BMI 33.2
[2024-01-12] MEDS ORDERED: dilTIAZem HCL 25 MG/5 ML VIAL IV ONE (00:34)
[2024-01-12] MEDS ORDERED: NA CHLORIDE 0.9% 100 ML ONE (00:34)
[2024-01-12 02:23] VITALS: TEMP 98.5
[2024-01-12 02:31] VITALS: O2SAT 98
[2024-01-12 02:33] VITALS: BP 176/56
--- NOTE | 2024-01-12 09:21 | RAD REPORT ---
EXAM DESCRIPTION: CT - Neck Angio - 01/12/2024 7:[address] Angiography Head and Neck With Intravenous Contrast CLINICAL HISTORY: The patient is 73 years old and is Female; Numbness. TECHNIQUE: [place]/head and neck CT angiography protocol performed with intravenous contras t. Sagittal and coronal reformatted images were created and reviewed. This CT exam was performed using one or more of the following dose reduction techniques: automated exposure control, adjustmen t of the mA and/or kV according to patient size, and/or use of iterative reconstruction technique. MIP reconstructed images were created and reviewed. COMPARISON: CT Head 01/11/2024, CT Neck Angiography 01/03/[address] Head Angiography 01/03/2024. FINDINGS: HEAD: RIGHT ANTERIOR CEREBRAL ARTERY: Unremarkable No occlusion or significant stenosis. Anterior com municating artery is present. No aneurysm. RIGHT MIDDLE CEREBRAL ARTERY: Unremarkable No occlusion or significant stenosis. No aneurysm. RIGHT POSTERIOR CEREBRAL ARTERY: Unremarkable No occlusion or significant stenosis. No aneurysm . RIGHT INTRACRANIAL INTERNAL CAROTID ARTERY: Dense calcification of the cavernous and clinoid segmen ts of the right ICA with moderate to severe intraluminal stenosis or partial occlusion secondary to i ndwelling plaque (axial image 46/156, sagittal image 105/240 on CTA head exam). RIGHT INTRACRANIAL VERTEBRAL ARTERY: Possible saccular aneurysm extending along the medial aspect o f the right vertebral artery V4 segment, measuring up to 0.55 cm in transverse dimensions and up to 0 .74 cm in craniocaudal dimension. Other potential etiologies include a dural mass along the right ant erior and lateral aspects of the cervical spinal canal at the level of the dens with associated inter nal hemorrhage. This appears unchanged from prior exam. LEFT ANTERIOR CEREBRAL ARTERY: Unremarkable No occlusion or significant stenosis. No aneurysm. LEFT MIDDLE CEREBRAL ARTERY: Severe circumferential luminal stenosis of the distal left M1 branch, just proximal to the left M2 MCA bifurcation. This appears new from reference exam. The remainder of the central left MCA branches appear patent. No aneurysm. LEFT POSTERIOR CEREBRAL ARTERY: Unremarkable No occlusion or significant stenosis. No aneurysm. LEFT INTRACRANIAL INTERNAL CAROTID ARTERY: Dense calcification of the cavernous and supraclinoid se gments of the left ICA with mild associated luminal stenosis secondary to calcified plaque. No dissection or occlusion. LEFT INTRACRANIAL VERTEBRAL ARTERY: Unremarkable No significant stenosis. No dissection or occl usion. BASILAR ARTERY: Unremarkable No occlusion or significant stenosis. No aneurysm. OTHER VASCULATURE: See below. ORBITS: Bilateral lens replacements. NECK: RIGHT COMMON CAROTID ARTERY: Less than 50% luminal stenosis of the proximal right common carotid ar ed secondary to eccentric calcified plaque. No dissection or occlusion. RIGHT EXTRACRANIAL INTERNAL CAROTID ARTERY: Unremarkable No significant stenosis. No dissection or occlusion. RIGHT EXTERNAL CAROTID ARTERY: Unremarkable No occlusion. RIGHT EXTRACRANIAL VERTEBRAL ARTERY: Right vertebral artery dominance, with no focal occlusion, hig h-grade stenosis, or acute abnormality. LEFT COMMON CAROTID ARTERY: Unremarkable No significant stenosis. No dissection or occlusion. LEFT EXTRACRANIAL INTERNAL CAROTID ARTERY: Unremarkable No significant stenosis. No dissection or occlusion. LEFT EXTERNAL CAROTID ARTERY: Unremarkable No occlusion. LEFT EXTRACRANIAL VERTEBRAL ARTERY: Unremarkable No significant stenosis. No dissection or occl usion. THYROID: Redemonstrated enlargement of the bilateral thyroid lobe with multiple indeterminate thyro id nodules, largest measuring up to 1.9 cm within the superior pole of the left thyroid lobe. AORTA: Left vertebral artery originates from the aortic arch, and demonstrates no focal occlusion o r high-grade stenosis. LUNG APICES: New noncalcified subpleural nodules within the right lung apex, with largest measuring 0.75 cm in size, favoring an inflammatory or infectious etiology given acuity (new from 01/03/2024 ex am). HEAD and NECK: BONES/JOINTS: Multilevel cervical spondylosis with multilevel posterior longitudinal ligament calci fication. No high-grade bony spinal canal stenosis. No discrete lytic or blastic abnormalities. SOFT TISSUES: Unremarkable CAROTID STENOSIS REFERENCE USING NASCET CRITERIA: % ICA stenosis = (1 - narrowest ICA diameter/diameter of distal cervical ICA) x 100. Mild - <50% stenosis. Moderate - 50-69% stenosis. Severe - 70-94% stenosis. Near occlusion - 95-99% stenosis. Occluded - 100% stenosis. IMPRESSION: 1. Possible 0.6 x 0.6 x 0.7 cm saccular aneurysm extending along the medial aspect of the right vertebral artery V4 segment, versus hemorrhage within an adjacent dural mass along the righ t anterior and lateral aspects of the cervical spinal canal at the level of the dens. This appears un changed from prior exam. Recommend further characterization by pre and postcontrast skull base/cerebe llar pontine angle MRI exam. 2. Severe circumferential luminal stenosis of the distal left M1 branch, just proximal to the left M2 MCA bifurcation. This appears new from 01/03/2024 exam. 3. Moderate to severe intraluminal stenosis or partial occlusion of the cavernous right ICA seconda ry to indwelling plaque or embolus. 4. Redemonstrated enlargement of the bilateral thyroid lobe with multiple indeterminate thyroid nod ules, largest measuring up to 1.9 cm within the superior pole of the left thyroid lobe. Recommend fur ther characterization by nonemergent thyroid ultrasound. 5. New noncalcified subpleural nodules within the right lung apex, with largest measuring 0.75 cm i n size, favoring an inflammatory or infectious etiology given acuity (new from 01/03/2024 exam). Recom mend further characterization by dedicated chest CT to evaluate the remainder of the lungs. Dr. Garcia discussed these critical findings regarding suspected extraluminal blood along the right V4 segment and moderate to severe stenosis in the right ICA and left M1 segments with Prince Jocelyn Regan MD via telephone at approximately 01:06 hours EST on 01/12/2024. Electronically signed by: Andrzej Garcia MD 01/12/2024 12:09 AM CDT RP Due to temporary technical issues with the PACS/Fluency reporting system, reports are being signed by the in house radiologists without review as a courtesy to insure prompt reporting. The interpreting radiologist is fully responsible for the content of the report.
--- NOTE | 2024-01-12 12:37 | EKG ---
Test Date: 2024-01-11 Test Time: 19:58:42 Wall And Floor Tiler: EDITH MEASUREMENT RESULTS: Intervals: Rate: 71 TN: 154 QRSD: 84 QT: 392 QTc: 425 [place]: P: 70 TN: 154 QRS: 0 T: 79 INTERPRETIVE STATEMENTS: Normal sinus rhythm Voltage criteria for left ventricular hypertrophy T wave abnormality, consider lateral ischemia Abnormal ECG Compared to ECG 01/03/2024 07:42:43 T-wave abnormality now present Atrial abnormality no longer present ST (T wave) deviation no longer present Possible ischemia still present Electronically Signed On 01-12-24 12:35:29 CDT by Jeffrey Love
[2024-01-12] MEDS ORDERED: PNEUMOCOCCAL VACCINE 0.5 ML IMVAC ONE (18:00)
== END 2024-01-12 02:17 | disposition short-term general hospital (02) | DRG 65 ==
LOC: ER 18:54 → ERHOLD 22:37
PROVIDERS: ADMIT Internal Medicine; ATTEND Internal Medicine
DX: I63.9 Cerebral infarction, unspecified (principal); I69.354 Hemiplegia and hemiparesis following cerebral infarction affecting left non-dominant side; K64.9 Unspecified hemorrhoids; E11.9 Type 2 diabetes mellitus without complications; I10 Essential (primary) hypertension; E66.9 Obesity, unspecified; I65.23 Occlusion and stenosis of bilateral carotid arteries; Z66 Do not resuscitate; Z88.2 Allergy status to sulfonamides; Z68.33 Body mass index [BMI] 33.0-33.9, adult
CPT/HCPCS: 93005; 96365; 96367; 96375; 99285